=== PATIENT | female | born 1945 | race Caucasian/White ===

== ENCOUNTER 2017-05-09 19:28 | Inpatient (IN) | payer OTHER, MEDICAID, MEDICARE ==
--- NOTE | 2017-05-09 19:37 | ED Physician Chart ---
Chief Complaint/HPI - Patient Information Date Seen:: 05/09/17 Time Seen:: 19:30 Chief Complaint:: Decreased responsiveness since about 3 pm today. History of Present Illness:: Pt was seen immediately by me upon her arrival. Brought in by ambulance from nursing facility for the above reason. Pt is obtunded and responsive to tactile stimuli only. H & P are limited because pt is unable to cooperate. Info is primarily from review of limited transfer documents. Pt has h/o ESRD on hemodialysis, hepatic failure with h/o hepatic encephalopathy and is on lactulose therapy. Pt is not in respiratory distress. Allergies:: Zosyn Vitals:: see Nurse Note. Historian:: Medical Records (from transferring facility) Family MD/PCP:: Dr. Rivera LMP:: Postmenopausal Review:: Nurse's Note Reviewed, Transfer documents Reviewed Review of Systems - Review of Systems General/Constitutional: Other (Pt does not cooperate for ROS.) Past Medical History - Past Medical History Past Medical History: HTN, DM, CVA/TIA, Dyslipidemia, PUD/GERD, ESRD, Other ( hepatic cirrhosis) Family History: Other (Pt is unable to cooperate to provide info on FHx.) Social History: Care Facility, Other (Pt is unable to cooperate to provide info on SHx.) Surgical History: other (pt is unable to cooperate to provide info on Surgical Hx.) Psychiatricy History: Depression Medication: Reviewed Family Medical History - Family Member Mother History Unknown: Yes Physical Exam - Physical Examination General/Constitutional: Alert Other Gen/Cons comments:: Alert and slightly cachetic elderly female with good respiratory effort. Pt responds to tactile stimuli only. Head: Atraumatic Other Eyes comments:: Pupils are slightly constricted. Eye exam is limited because pt is unable to cooperate. Skin: No rash, No ecchymosis, No lymphadenopathy ENMT: External ears, nose nl, TM canals nl, Nasal exam nl, Oropharynx nl Neck: Nontender, Full ROM w/o pain, No JVD, No nuchal rigidity, No mass, No stridor Respiratory: Nl effort/Exclusion, Clear to Auscultation, No Wheeze/Rhonchi/Rales Cardio Vascular: RRR, No murmur, gallop, rubs GI: No tenderness/rebounding/guarding, No organomegaly, Normal BS's, Nondistended, No mass/bruits Other GI comments:: Abdomen is soft. Extremities: No edema Other Neuro/Psych comments:: Pt responds to tactile stimuli. Spontaneous movements noticed in all 4 extremities. Pt does not cooperate for full neurological exam. Labs/Radiology/EKG Results - Lab Results Results: Laboratory Tests 05/09/17 05/09/17 05/09/17 19:41 19:45 19:45 WBC 6.3 RBC 4.63 Hgb 14.1 Hct 43.4 MCV 93.8 MCH 30.5 MCHC Differential 32.5 RDW 16.0 Plt Count 104 L MPV 9.5 Neutrophils % 77.7 Lymphocytes % 15.2 L Monocytes % 6.4 Eosinophils % 0.6 Basophils % 0.1 PT 11.9 H INR 1.13 PTT (Actin FS) 29.2 Sodium Potassium Chloride Carbon Dioxide Anion Gap BUN Creatinine Est GFR ( Amer) Est GFR (Non-Af Amer) BUN/Creatinine Ratio Glucose POC Glucose 123 H Whole Bld Lactic Acid Calcium Total Bilirubin AST ALT Alkaline Phosphatase Ammonia Creatine Kinase Troponin I Total Protein Albumin Globulin Albumin/Globulin Ratio Urine Source Urine Color Urine Clarity Urine pH Ur Specific [place] Urine Protein Urine Glucose (UA) Urine Ketones Urine Blood Urine Nitrate Urine Bilirubin Urine Urobilinogen Ur Leukocyte Esterase Urine RBC Urine WBC Ur Epithelial Cells Urine Bacteria 05/09/17 05/09/17 05/09/17 19:45 19:45 19:45 WBC RBC Hgb Hct MCV MCH MCHC Differential RDW Plt Count MPV Neutrophils % Lymphocytes % Monocytes % Eosinophils % Basophils % PT INR PTT (Actin FS) Sodium 135 L Potassium 3.7 Chloride 98 Carbon Dioxide 18.9 L Anion Gap 21.8 H BUN 72 H Creatinine 7.2 H* Est GFR ( Amer) TNP Est GFR (Non-Af Amer) TNP BUN/Creatinine Ratio 10.0 Glucose 136 H POC Glucose Whole Bld Lactic Acid 3.02 H* Calcium 10.4 H Total Bilirubin 2.6 H AST 33 ALT 19 Alkaline Phosphatase 119 H Ammonia Creatine Kinase 99 Troponin I 0.08 H* Total Protein 7.6 Albumin 3.9 Globulin 3.7 Albumin/Globulin Ratio 1.1 Urine Source Urine Color Urine Clarity Urine pH Ur Specific [place] Urine Protein Urine Glucose (UA) Urine Ketones Urine Blood Urine Nitrate Urine Bilirubin Urine Urobilinogen Ur Leukocyte Esterase Urine RBC Urine WBC Ur Epithelial Cells Urine Bacteria 05/09/17 05/09/17 19:45 20:10 WBC RBC Hgb Hct MCV MCH MCHC Differential RDW Plt Count MPV Neutrophils % Lymphocytes % Monocytes % Eosinophils % Basophils % PT INR PTT (Actin FS) Sodium Potassium Chloride Carbon Dioxide Anion Gap BUN Creatinine Est GFR ( Amer) Est GFR (Non-Af Amer) BUN/Creatinine Ratio Glucose POC Glucose Whole Bld Lactic Acid Calcium Total Bilirubin AST ALT Alkaline Phosphatase Ammonia 277 H Creatine Kinase Troponin I Total Protein Albumin Globulin Albumin/Globulin Ratio Urine Source [place] Urine Color YELLOW Urine Clarity CLOUDY H Urine pH 6.5 Ur Specific [place] 1.020 Urine Protein 100 H Urine Glucose (UA) NEGATIVE Urine Ketones NEGATIVE Urine Blood MODERATE H Urine Nitrate NEGATIVE Urine Bilirubin NEGATIVE Urine Urobilinogen 0.2 Ur Leukocyte Esterase MODERATE H Urine RBC 25-50 H Urine WBC 50-100 H Ur Epithelial Cells MODERATE Urine Bacteria MODERATE Laboratory Last Values WBC 6.3 Th/cmm (4.8-10.8) 05/09/17 19:45 RBC 4.63 Mil/cmm (3.80-5.20) 05/09/17 19:45 Hgb 14.1 gm/dL (11.7-16.1) 05/09/17 19:45 Hct 43.4 % (35.0-45.0) 05/09/17 19:45 MCV 93.8 fl (81-100) 05/09/17 19:45 MCH 30.5 pg (27.0-31.0) 05/09/17 19:45 MCHC Differential 32.5 pg (28.0-36.0) 05/09/17 19:45 RDW 16.0 % (11.5-20.0) 05/09/17 19:45 Plt Count 104 Th/cmm (150-400) L 05/09/17 19:45 MPV 9.5 fl 05/09/17 19:45 Neutrophils % 77.7 % (40.0-80.0) 05/09/17 19:45 Lymphocytes % 15.2 % (20.0-50.0) L 05/09/17 19:45 Monocytes % 6.4 % (2.0-10.0) 05/09/17 19:45 Eosinophils % 0.6 % (0.0-5.0) 05/09/17 19:45 Basophils % 0.1 % (0.0-2.0) 05/09/17 19:45 PT 11.9 SECONDS (9.5-11.5) H 05/09/17 19:45 INR 1.13 (0.5-1.4) 05/09/17 19:45 PTT (Actin FS) 29.2 SECONDS (26.0-38.0) 05/09/17 19:45 Sodium 135 mEq/L (136-145) L 05/09/17 19:45 Potassium 3.7 mEq/L (3.5-5.1) 05/09/17 19:45 Chloride 98 mEq/L (98-107) 05/09/17 19:45 Carbon Dioxide 18.9 mEq/L (21.0-31.0) L 05/09/17 19:45 Anion Gap 21.8 (7.0-16.0) H 05/09/17 19:45 BUN 72 mg/dL (7-25) H 05/09/17 19:45 Creatinine 7.2 mg/dL (0.6-1.2) H* 05/09/17 19:45 Est GFR ( Amer) TNP 05/09/17 19:45 Est GFR (Non-Af Amer) TNP 05/09/17 19:45 BUN/Creatinine Ratio 10.0 05/09/17 19:45 Glucose 136 mg/dL (70-105) H 05/09/17 19:45 POC Glucose 123 MG/DL (70 - 105) H 05/09/17 19:41 Whole Bld Lactic Acid 3.12 mmol/L (0.60-1.99) H* 05/09/17 21:39 Calcium 10.4 mg/dL (8.6-10.3) H 05/09/17 19:45 Total Bilirubin 2.6 mg/dL (0.3-1.0) H 05/09/17 19:45 AST 33 U/L (13-39) 05/09/17 19:45 ALT 19 U/L (7-52) 05/09/17 19:45 Alkaline Phosphatase 119 U/L (34-104) H 05/09/17 19:45 Ammonia 277 umol/L (16-53) H 05/09/17 19:45 Creatine Kinase 99 U/L (30-223) 05/09/17 19:45 Troponin I 0.08 ng/mL (0.01-0.05) H* 05/09/17 22:11 Total Protein 7.6 gm/dL (6.0-8.3) 05/09/17 19:45 Albumin 3.9 gm/dL (3.7-5.3) 05/09/17 19:45 Globulin 3.7 gm/dL 05/09/17 19:45 Albumin/Globulin Ratio 1.1 (1.0-1.8) 05/09/17 19:45 Urine Source [place] 05/09/17 20:10 Urine Color YELLOW 05/09/17 20:10 Urine Clarity CLOUDY (CLEAR) H 05/09/17 20:10 Urine pH 6.5 (4.6 - 8.0) 05/09/17 20:10 Ur Specific [place] 1.020 (1.005-1.030) 05/09/17 20:10 Urine Protein 100 mg/dL (NEGATIVE) H 05/09/17 20:10 Urine Glucose (UA) NEGATIVE mg/dL (NEGATIVE) 05/09/17 20:10 Urine Ketones NEGATIVE mg/dL (NEGATIVE) 05/09/17 20:10 Urine Blood MODERATE (NEGATIVE) H 05/09/17 20:10 Urine Nitrate NEGATIVE (NEGATIVE) 05/09/17 20:10 Urine Bilirubin NEGATIVE (NEGATIVE) 05/09/17 20:10 Urine Urobilinogen 0.2 E.U./dL (0.2 - 1.0) 05/09/17 20:10 Ur Leukocyte Esterase MODERATE (NEGATIVE) H 05/09/17 20:10 Urine RBC 25-50 /hpf (0-5) H 05/09/17 20:10 Urine WBC 50-100 /hpf (0-5) H 05/09/17 20:10 Ur Epithelial Cells MODERATE /lpf (FEW) 05/09/17 20:10 Urine Bacteria MODERATE /hpf (NONE SEEN) 05/09/17 20:10 - Radiology Results Results: PCXR: Based on my interpretation, cardiomegaly with increased markings at right lower lung field. Consider early RLL pneumonia. Official report is pending. Head CT without contrast: Motion artifacts. Atrophy. Lacunar infarcts. No bleed. No shift. No edema. Official report per Dr. Inocencio Pereira, radiologist. - EKG Interpretations EKG Time:: 20:00 Rate & Rhythm: NSR with VR 93 Comments:: LPFB. Cannot r/o old ASMI, age undetermined. No acute ischemic changes. manager clinic: NSR with VR 86. No ectopy. ED Septic Shock - . Is Septic Shock (SBP<90, OR Lactate>4 mmol\L) present?: No Reassessment (Disposition) - Reassessment Reassessment:: 1999 Pt has been repeatedly evaluated. Pt's mental status did not change much after Narcan 0.4 mg IVP x 2 had been given. Her Accuchek was 123 on presentation. Pt maintains good respiratory effort with adequate O2 saturation 96%. 2203 Pt has remained stable. She has been reexamined repeatedly. No new findings. CT and remaining lab results just became available. Patient's daughter Lianne was at bedside. EKG, lab and radiological findings have been reviewed. Management plan has been discussed. She stated that pt had specific instructions to her before that no NG tube is to be inserted. Lactulose thus is to be given rectally. Case was discussed with Dr. Johnson at [facility] with H & P, EKG, CT, CXR, and available lab findings reviewed. He concurred with present management. Dr. Johnson requested repeat lactic acid level and troponin I. He is to be contacted with results and then decision will be made to have pt transferred to [facility] for further care. Dr. Johnson gave authorization number for pt's care here at this hospital. ([id number]). Dr. Johnson was aware that pt's daughter Lianne prefers to have pt transferred to [facility] for further care. 0013 Pt remains stable. Repeat lactic acid level and troponin I were reviewed with Dr. Johnson earlier. Dr. Johnson just called back and related that [facility] is unable to accept pt for transfer at this time. Dr. Johnson authorized pt to be admitted here at this hospital overnight. He will attempt to have [facility] arrange transfer for tomorrow. Dr. Manzo is to be contacted. 0023 Case was discussed with Dr. Manzo with pertinent H & P, EKG, radiogical and lab findings, etc. reviewed. Pt is to be admitted to ICU under his care. - Diagnosis Diagnosis:: Hepatic cirrhosis with hepatic encephalopathy. Urinary tract infection. Probable early RLL pneumonia. ESRD, on hemodialysis. Mildly elevated troponin I of unknown significance. Diabetes mellitus, stable. - Patient Disposition Admitted to:: ICU Admitting Medical Physician:: Jose Manzo Time:: 00:25 Condition at Disposition:: Stable, Critical
[2017-05-09] MEDS ORDERED: Naloxone 0.4 mg/mL 1mL Vial IVP STA ×2 (19:40→19:55)
[2017-05-09] MEDS ORDERED: Naloxone 0.4 mg/mL 1mL Vial ONE ×2 (19:43→19:58)
[2017-05-09 20:08] LABS: % BASOPHILS 0.1 % (0.0-2.0); % EOSINOPHILS 0.6 % (0.0-5.0); % LYMPHOCYTES 15.2 % (20.0-50.0); % MONOCYTES 6.4 % (2.0-10.0); % NEUTROPHILS 77.7 % (40.0-80.0); HEMATOCRIT 43.4 % (35.0-45.0); HEMOGLOBIN 14.1 gm/dL (11.7-16.1); MEAN CELL VOLUME 93.8 fl (81-100); MEAN CORPUSCULAR HEMOGLOBIN 30.5 pg (27.0-31.0); MEAN CORPUSCULAR HGB CONC 32.5 pg (28.0-36.0); MEAN PLATELET VOLUME 9.5 fl; NEUTROPHILE ABSOLUTE 4.9 Th/cmm (1.8-8.0); PLATELET COUNT 104 Th/cmm (150-400); RED BLOOD COUNT 4.63 Mil/cmm (3.80-5.20); WHITE BLOOD COUNT 6.3 Th/cmm (4.8-10.8)
[2017-05-09 20:20] LABS: INR 1.13 (0.5-1.4); PROTHROMBIN TIME (TEST) 11.9 SECONDS (9.5-11.5)
[2017-05-09 20:22] LABS: URINE BILIRUBIN NEGATIVE (NEGATIVE); URINE BLOOD MODERATE (NEGATIVE); URINE GLUCOSE (UA) NEGATIVE (NEGATIVE); URINE KETONE NEGATIVE (NEGATIVE); URINE PH 6.5 (4.6 - 8.0); URINE PROTEIN 100 mg/dL (NEGATIVE); URINE UROBILINOGEN 0.2 E.U./dL (0.2 - 1.0)
[2017-05-09 20:23] LABS: URINE COLOR YELLOW
[2017-05-09 20:24] LABS: ALB/GLOB RATIO 1.1 (1.0-1.8); ALKALINE PHOSPHATASE 119 U/L (34-104); ANION GAP 21.8 (7.0-16.0); BILIRUBIN,TOTAL 2.6 mg/dL (0.3-1.0); BUN - UREA NITROGEN 72 mg/dL (7-25); CALCIUM SERUM 10.4 mg/dL (8.6-10.3); CARBON DIOXIDE 18.9 mEq/L (21.0-31.0); CHLORIDE 98 mEq/L (98-107); GLUCOSE 136 mg/dL (70-105); POTASSIUM SERUM 3.7 mEq/L (3.5-5.1); SGOT 33 U/L (13-39); SGPT/ALT 19 U/L (7-52); SODIUM SERUM 135 mEq/L (136-145)
[2017-05-09 20:45] LABS: URINE BACTERIA MODERATE /hpf (NONE SEEN); URINE EPITHELIAL CELLS MODERATE /lpf (FEW); URINE RBC 25-50 /hpf (0-5)
[2017-05-09 20:49] LABS: CREATININE - SERUM 7.2 mg/dL (0.6-1.2)
[2017-05-09 20:52] LABS: URINE WBC 50-100 /hpf (0-5)
[2017-05-09] MEDS ORDERED: Levofloxacin 500mg/100mL 500 MG in Premix Fluid 1 BAG IV ONE (20:52)
[2017-05-09] MEDS ORDERED: Levofloxacin 500mg/100mL 500 MG/100 ML BAG IV ONE (20:54)
[2017-05-09] MEDS ORDERED: Lactulose 10 Gm/15 mL 30mL UDC NG STA (21:00)
[2017-05-09] MEDS ORDERED: Sodium Chloride 0.9% 1,000 ML IV ONE (21:45)
[2017-05-09] MEDS ORDERED: Lactulose 10 Gm/15 mL 30mL UDC ONE (22:02)
[2017-05-10] MEDS: Sodium Chloride 0.9% 1,000 ML IV SCH ×2 (02:36→13:53)
[2017-05-10 05:11] LABS: MEAN PLATELET VOLUME 9.8 fl; NEUTROPHILE ABSOLUTE 5.4 Th/cmm (1.8-8.0); RED CELL DISTRIBUTION WIDTH 16.6 % (11.5-20.0)
[2017-05-10 05:19] LABS: % BASOPHILS 1.5 % (0.0-2.0); % EOSINOPHILS 1.2 % (0.0-5.0); % LYMPHOCYTES 12.1 % (20.0-50.0); % MONOCYTES 8.3 % (2.0-10.0); % NEUTROPHILS 76.9 % (40.0-80.0); HEMATOCRIT 39.4 % (35.0-45.0); HEMOGLOBIN 13.1 gm/dL (11.7-16.1); MEAN CELL VOLUME 93.3 fl (81-100); MEAN CORPUSCULAR HGB CONC 33.2 pg (28.0-36.0); PLATELET COUNT 83 Th/cmm (150-400); RED BLOOD COUNT 4.22 Mil/cmm (3.80-5.20)
[2017-05-10 05:26] LABS: ALB/GLOB RATIO 1.1 (1.0-1.8); ALKALINE PHOSPHATASE 97 U/L (34-104); ANION GAP 21.1 (7.0-16.0); BILIRUBIN,TOTAL 2.6 mg/dL (0.3-1.0); BUN - UREA NITROGEN 76 mg/dL (7-25); BUN/CREATININE RATIO 10.3; CALCIUM SERUM 9.9 mg/dL (8.6-10.3); CARBON DIOXIDE 19.8 mEq/L (21.0-31.0); CHLORIDE 104 mEq/L (98-107); GLUCOSE 106 mg/dL (70-105); POTASSIUM SERUM 3.9 mEq/L (3.5-5.1); SGOT 33 U/L (13-39); SGPT/ALT 18 U/L (7-52); SODIUM SERUM 141 mEq/L (136-145)
[2017-05-10 05:34] LABS: CREATININE - SERUM 7.4 mg/dL (0.6-1.2)
--- NOTE | 2017-05-10 08:12 | Diagnostic Imaging Report ---
CT scan of the brain without intravenous contrast HISTORY: Stroke, CVA Total DLP equals 631 CTDI equals 35.9 Axial sections were obtained from the base of the skull to the vertex. The exam is limited due to patient motion artifact. There is prominence the ventricular system size along with enlargement of cerebral sulci and subarachnoid cisterns reflecting atrophy. Hypodensity is noted throughout the supratentorial white matter regions without mass effect. The findings may be associated with chronic small vessel ischemic disease. Somewhat more discrete hypodensity noted in the left basal ganglia region that may be associated with old infarcts. No acute intracerebral hemorrhage. Again, no mass effect or shift of midline structures. No extra-axial masses or abnormal fluid collections. IMPRESSION: 1. Limited exam due to patient motion 2. Cerebral atrophy 3. Supratentorial white matter changes that may be associated with chronic small vessel ischemic disease. Somewhat more focal hypodensity in the left basal ganglia region may be associated with old infarcts. 4. No definite acute abnormalities
--- NOTE | 2017-05-10 08:13 | Diagnostic Imaging Report ---
Portable chest x-ray HISTORY: Shortness of breath The heart is enlarged. No focal pulmonary processes. No hilar or mediastinal abnormalities. Surgical changes seen within the cervical spine. IMPRESSION: 1. Cardiomegaly 2. No acute focal pulmonary processes
--- NOTE | 2017-05-10 08:13 | History and Physical ---
History of Present Illness - HPI Chief Complaint: Altered Level of Consciousness HPI: 71 year old female who was brought in by ambulance to [facility] ER from [facility] for decreased responsiveness noted by the staff. Patient was found to be obtunded and only responsive to tactile stimuli. Patient is unable to provide any history and her medical information obtained from her transfer records. Patient has a history of ESRD on HD, in addition she has a history of liver failure with history of hepatic encephalopathy. She has a history of HTN, DM,CVA/TIA,Dyslipidemia, PUD/GERD, ESRD on HD, Hepatic Cirrhosis and Depression. Vital Signs: Last Vital Signs Temp 97.1 F 05/10/17 04:00 Pulse 75 05/10/17 06:52 Resp 16 05/10/17 06:52 BP 115/65 05/10/17 06:52 Pulse Ox 97 05/10/17 06:52 Past Medical History Cardiovascular: Report: HTN, Hyperlipidemia Pulmonary: Report: No Pertinent Hx [employer]: Report: CVA, TIA GI: Report: Peptic Ulcer, Other (liver failure, hepatic encephalopathy) Psych: Report: Depression Musculoskeletal: Report: No Pertinent Hx Rheumatologic: Report: No pertinent Hx Infectious Disease: Report: No Pertinent Hx Renal/: Report: Chronic Renal Failure (ESRD) Endocrine: Report: Diabetes Dermatology: Report: No Pertinent Hx - Past Surgical History Past Surgical History: No pertinent Hx Family Medical History - Family Member Mother History Unknown: Yes Social History Smoke: No Alcohol: None Drugs: None Lives: Longterm - Medications Home Medications: Home Medication Medication Instructions Recorded Type Acetaminophen [Tylenol] 650 mg PO Q4HR PRN 05/09/17 History Albuterol Sulfate 5 mg IH Q4H PRN 05/09/17 History Aspirin [Aspirin Chewable] 81 mg PO DAILY 05/09/17 History Calcium Carbonate/Vitamin D3 1 each PO BID 05/09/17 History [Calcium 500 + D Tablet] Carvedilol 6.25 mg PO BID 05/09/17 History Furosemide 40 mg PO DAILY 05/09/17 History Hydrocortisone 1% Cream 1 appl TP PRN PRN 05/09/17 History [Hydrocortisone 1%] Lactulose 36 gm PO BID 05/09/17 History Lactulose 36 gm PO TID 05/09/17 History Rifaximin [Xifaxan] 550 mg PO BID 05/09/17 History Sevelamer Carbonate [Renvela] 1.6 gm PO BID 05/09/17 History Vit B Cmplx 3/FA/Vit C/Biotin 1 mg PO DAILY 05/09/17 History [Nephro-Shane Rx Tablet] hydrOXYzine [Atarax*] 10 mg PO Q24H PRN 05/09/17 History - Allergies Allergies/Adverse Reactions: Allergies Allergy/AdvReac Type Severity Reaction Status Date / Time piperacillin [From Zosyn] Allergy Verified 05/09/17 20:08 tazobactam [From Zosyn] Allergy Verified 05/09/17 20:08 Review of Systems - Review of Systems Constitutional: Report: No Significant Eyes: Report: No Significant ENT: Report: No Significant Respiratory: Report: No Significant Cardiovascular: Report: No Significant Gastrointestinal: Report: No Significant Genitourinary: Report: No Significant Musculoskeletal: Report: No Significant Skin: Report: No Significant Neurological: Report: No Significant Physical Exam - Physical Exam HEENT: Report: Ears Nose Throat within normal limits, Pharnyx within normal limits Neck: Report: Within normal limits Cardiovascular Systems: Report: +s1/s2 noted, Regular, Rate and Rhythm Respiratory: Report: Breath Sounds are within normal limits Abdomen: Report: Non-tender to palpation - Lab Results All Lab Results last 24 hours: Laboratory Last Values WBC 7.0 Th/cmm (4.8-10.8) 05/10/17 04:50 RBC 4.22 Mil/cmm (3.80-5.20) 05/10/17 04:50 Hgb 13.1 gm/dL (11.7-16.1) 05/10/17 04:50 Hct 39.4 % (35.0-45.0) 05/10/17 04:50 MCV 93.3 fl (81-100) 05/10/17 04:50 MCH 31.0 pg (27.0-31.0) 05/10/17 04:50 MCHC Differential 33.2 pg (28.0-36.0) 05/10/17 04:50 RDW 16.6 % (11.5-20.0) 05/10/17 04:50 Plt Count 83 Th/cmm (150-400) L D 05/10/17 04:50 MPV 9.8 fl 05/10/17 04:50 Neutrophils % 76.9 % (40.0-80.0) 05/10/17 04:50 Lymphocytes % 12.1 % (20.0-50.0) L 05/10/17 04:50 Monocytes % 8.3 % (2.0-10.0) 05/10/17 04:50 Eosinophils % 1.2 % (0.0-5.0) 05/10/17 04:50 Basophils % 1.5 % (0.0-2.0) 05/10/17 04:50 PT 11.9 SECONDS (9.5-11.5) H 05/09/17 19:45 INR 1.13 (0.5-1.4) 05/09/17 19:45 PTT (Actin FS) 29.2 SECONDS (26.0-38.0) 05/09/17 19:45 Sodium 141 mEq/L (136-145) 05/10/17 04:50 Potassium 3.9 mEq/L (3.5-5.1) 05/10/17 04:50 Chloride 104 mEq/L (98-107) 05/10/17 04:50 Carbon Dioxide 19.8 mEq/L (21.0-31.0) L 05/10/17 04:50 Anion Gap 21.1 (7.0-16.0) H 05/10/17 04:50 BUN 76 mg/dL (7-25) H 05/10/17 04:50 Creatinine 7.4 mg/dL (0.6-1.2) H* 05/10/17 04:50 Est GFR ( Amer) TNP 05/10/17 04:50 Est GFR (Non-Af Amer) TNP 05/10/17 04:50 BUN/Creatinine Ratio 10.3 05/10/17 04:50 Glucose 106 mg/dL (70-105) H 05/10/17 04:50 POC Glucose 123 MG/DL (70 - 105) H 05/09/17 19:41 Whole Bld Lactic Acid 3.12 mmol/L (0.60-1.99) H* 05/09/17 21:39 Calcium 9.9 mg/dL (8.6-10.3) 05/10/17 04:50 Total Bilirubin 2.6 mg/dL (0.3-1.0) H 05/10/17 04:50 AST 33 U/L (13-39) 05/10/17 04:50 ALT 18 U/L (7-52) 05/10/17 04:50 Alkaline Phosphatase 97 U/L (34-104) 05/10/17 04:50 Ammonia 176 umol/L (16-53) H 05/10/17 04:50 Creatine Kinase 99 U/L (30-223) 05/09/17 19:45 Troponin I 0.10 ng/mL (0.01-0.05) H* D 05/10/17 04:50 Total Protein 6.8 gm/dL (6.0-8.3) 05/10/17 04:50 Albumin 3.5 gm/dL (3.7-5.3) L 05/10/17 04:50 Globulin 3.3 gm/dL 05/10/17 04:50 Albumin/Globulin Ratio 1.1 (1.0-1.8) 05/10/17 04:50 Urine Source [place] 05/09/17 20:10 Urine Color YELLOW 05/09/17 20:10 Urine Clarity CLOUDY (CLEAR) H 05/09/17 20:10 Urine pH 6.5 (4.6 - 8.0) 05/09/17 20:10 Ur Specific [place] 1.020 (1.005-1.030) 05/09/17 20:10 Urine Protein 100 mg/dL (NEGATIVE) H 05/09/17 20:10 Urine Glucose (UA) NEGATIVE mg/dL (NEGATIVE) 05/09/17 20:10 Urine Ketones NEGATIVE mg/dL (NEGATIVE) 05/09/17 20:10 Urine Blood MODERATE (NEGATIVE) H 05/09/17 20:10 Urine Nitrate NEGATIVE (NEGATIVE) 05/09/17 20:10 Urine Bilirubin NEGATIVE (NEGATIVE) 05/09/17 20:10 Urine Urobilinogen 0.2 E.U./dL (0.2 - 1.0) 05/09/17 20:10 Ur Leukocyte Esterase MODERATE (NEGATIVE) H 05/09/17 20:10 Urine RBC 25-50 /hpf (0-5) H 05/09/17 20:10 Urine WBC 50-100 /hpf (0-5) H 05/09/17 20:10 Ur Epithelial Cells MODERATE /lpf (FEW) 05/09/17 20:10 Urine Bacteria MODERATE /hpf (NONE SEEN) 05/09/17 20:10 Laboratory Results - last 24 hr 05/10/17 05/10/17 05/10/17 04:50 04:50 04:50 WBC 7.0 RBC 4.22 Hgb 13.1 Hct 39.4 MCV 93.3 MCH 31.0 MCHC Differential 33.2 RDW 16.6 Plt Count 83 L D MPV 9.8 Neutrophils % 76.9 Lymphocytes % 12.1 L Monocytes % 8.3 Eosinophils % 1.2 Basophils % 1.5 Sodium 141 Potassium 3.9 Chloride 104 Carbon Dioxide 19.8 L Anion Gap 21.1 H BUN 76 H Creatinine 7.4 H* Est GFR ( Amer) TNP Est GFR (Non-Af Amer) TNP BUN/Creatinine Ratio 10.3 Glucose 106 H Calcium 9.9 Total Bilirubin 2.6 H AST 33 ALT 18 Alkaline Phosphatase 97 Ammonia 176 H Troponin I Total Protein 6.8 Albumin 3.5 L Globulin 3.3 Albumin/Globulin Ratio 1.1 05/10/17 04:50 WBC RBC Hgb Hct MCV MCH MCHC Differential RDW Plt Count MPV Neutrophils % Lymphocytes % Monocytes % Eosinophils % Basophils % Sodium Potassium Chloride Carbon Dioxide Anion Gap BUN Creatinine Est GFR ( Amer) Est GFR (Non-Af Amer) BUN/Creatinine Ratio Glucose Calcium Total Bilirubin AST ALT Alkaline Phosphatase Ammonia Troponin I 0.10 H* D Total Protein Albumin Globulin Albumin/Globulin Ratio - Assessment Assessment: altered level of consciousness hepatic failure hepatic encephalopathy ESRD on HD elevated troponin levels RLL PNA HTN DM CVA/TIA Dyslipidemia PUD/GERD Depression - Plan Plan: altered level of consciousness ... repeat Ammonia level. Will repeat labwork this morning. hepatic failure ... hepatic encephalopathy ESRD on HD ... nephrology consult. Will order dialysis. elevated troponin levels ... on telemetry, repeat troponin levels. RLL PNA ... will order pulmonology. Patient started on IV Vancomycin per pharmacy. repeat chest xray HTN ... will order home medication. DM ... accuchecks QID, SSI CVA/TIA Dyslipidemia PUD/GERD Depression
[2017-05-10] MEDS ORDERED: Albuterol Nebulizer 2.5mg/3mL HHN PRN (08:33)
[2017-05-10] MEDS: SEVELAMER CARBONATE 1.6 GM PO SCH ×2 (08:58→17:20)
[2017-05-10] MEDS ORDERED: Aspirin 81mg Chewable Tab PO SCH (09:00)
[2017-05-10] MEDS ORDERED: Lactulose 10 Gm/15 mL 30mL UDC PO SCH ×2 (09:00→11:13)
[2017-05-10] MEDS ORDERED: BIOTIN PO SCH (09:00)
[2017-05-10] MEDS ORDERED: [UNRECOGNIZED DRUG - OTHER] PO SCH (09:00)
[2017-05-10] MEDS ORDERED: VIT B CMPLX PO SCH (09:00)
[2017-05-10] MEDS ORDERED: VITAMIN D3 PO SCH (09:00)
[2017-05-10] MEDS ORDERED: Non-Formulary Item 1 EA (Rifaximin [Xifaxan] 550 MG) PO SCH (09:00)
[2017-05-10] MEDS ORDERED: CALCIUM CARBONATE PO SCH (09:00)
[2017-05-10] MEDS ORDERED: Calcium Carb/Vit D 500 mg/200 U Tab PO SCH (11:17)
--- NOTE | 2017-05-10 11:50 | Diagnostic Imaging Report ---
Portable chest x-ray HISTORY: Cough The heart is enlarged. No acute focal pulmonary processes are seen. No hilar or mediastinal abnormalities. IMPRESSION: 1 no acute abnormalities 2. Cardiomegaly
[2017-05-10] MEDS: Albuterol/Ipratropium Neb 3 ML AERS HHN SCH ×2 (15:38→18:54)
--- NOTE | 2017-05-10 17:50 | Consultation ---
DATE OF CONSULTATION: 05/10/2017 MANAGING PARTNER: Christopher Tomlin M.D. REASON FOR CONSULTATION: Electrolyte imbalance and fluid management. HISTORY OF PRESENT ILLNESS: This is a 71-year-old female with past medical history of end-stage renal disease, on hemodialysis, was admitted because of altered level of consciousness. A few hours prior to admission, the patient was noted by ECF staff to be poorly responsive. She had been refusing her lactulose for several days. She was then brought to the Emergency Room. CT scan of the head revealed no acute disease, cerebral atrophy and possible old infarction noted in the left basal ganglia. Chest x-ray was negative. White count was 6.3 and she has had a temperature of 96.8. However, ammonia level was 277. She was supposed to be transferred to [place], but this was canceled. She has her dialysis on Wednesday, and Saturdays. She missed her Wednesday treatment. Her BUN/creatinine today were 72/7.2. PAST MEDICAL HISTORY: 1. End-stage renal disease, on hemodialysis. 2. Chronic liver disease. 3. Hepatic encephalopathy. 4. Essential hypertension. 5. CVA/TIA. 6. Dyslipidemia. 7. Peptic ulcer disease/GERD. 8. Depression. PAST SURGICAL HISTORY: Status post creation of left AV fistula. CURRENT MEDICATIONS: She is currently on albuterol, budesonide, calcium carbonate, carvedilol, enalapril, hydroxyzine, lactulose, levofloxacin, naloxone, normal saline, rifaximin, vancomycin. ALLERGIES: ZOSYN and TAZOBACTAM. SOCIAL AND FAMILY HISTORY: I was not able to obtain directly from the patient because she is obtunded at the present time. REVIEW OF SYSTEMS: Again, I was unable to decipher directly from the patient. PHYSICAL EXAMINATION: GENERAL: As mentioned, the patient is quite of time, but not in any form of distress. VITAL SIGNS: Her blood pressure is 156/75, pulse 85, temperature 96.8 degrees. SKIN: Good turgor, warm, no rash, no jaundice appreciated. HEENT: Head normocephalic, atraumatic. Eyes: Unable to assess her extraocular muscles or pupils. She has ____ sclerae. Nose, midline nasal septum. Mouth: Dry mucosa with poor dentition. NECK: Supple, no adenopathy, no thyromegaly, no bruits. Trachea palpated in the midline. CHEST AND CARDIOVASCULAR: S1, S2. No rub, murmur or gallop appreciated. Point of maximal impulse fifth intercostal space, left midclavicular line. No abdominal or femoral bruits appreciated. LUNGS: Equal expansion. No use of accessory muscles. No supraclavicular retractions, decreased breath sounds, clear to auscultation without any wheeze. BREASTS: Symmetrical, without any discharge. ABDOMEN: Mildly globular, soft. Positive for bowel sounds. No bruits either diastolic or systolic. RECTAL: Lax sphincter tone. GENITOURINARY: Normal appearing female genitalia. MUSCULOSKELETAL: No effusions present in her joints, but unable to assess her range of motion. EXTREMITIES: No evidence of edema, cyanosis nor clubbing with palpable femoral, but unable to fully appreciate popliteal and dorsalis pedis pulses. NEUROLOGIC: As mentioned, the patient is obtunded, so I was not able to pursue further my neuro exam. LABORATORY DATA: Did reveal white count 7, hemoglobin 13.1, hematocrit 39.4, platelets 83, polys 76.9%. Sodium 141, potassium 3.9, chloride 104, bicarbonate 19, BUN 76, creatinine of 7.4, glucose 106, ammonia 176, troponin 0.10, albumin 3.5. IMPRESSION: 1. End-stage renal disease, on hemodialysis. 2. Elevated troponin secondary to kidney failure. 3. Chronic liver disease. 4. Hepatitis encephalopathy, stage IV. 5. Essential hypertension. 6. History of cerebrovascular accident/transient ischemic attack. 7. Dyslipidemia. 8. Peptic ulcer disease/gastroesophageal reflux disease. 9. Depression. PLAN: 1. Hemodialysis today. 2. We will schedule again for dialysis at a.m. 3. Follow up electrolytes. 4. Continue lactulose. 5. Follow up urine cultures. Thank you Dr. Manzo for this consult. I will follow the patient closely with you. JOB# [id number]
[2017-05-10] MEDS ORDERED: Budesonide 0.5 Mg/2 mL Ud HHN SCH (19:00)
--- NOTE | 2017-05-10 19:53 | Consultation ---
DATE OF CONSULTATION: 05/10/[address] Manzo. HISTORY AND PHYSICAL: This 71-year-old female patient, who has dementia at shelter. The patient had missed dialysis. The patient apparently has not been taking lactulose, and the patient became altered level. At this time, the patient was brought in by coconut cooker to the Emergency Room. The patient is admitted. PAST MEDICAL HISTORY: Acute respiratory failure, congestive heart failure, hypertension, hyperlipidemia, hepatic encephalopathy, and pneumonia, CVA with late effect, GERD, depression, dementia, thrombocytopenia, and vitamin D deficiency. FAMILY HISTORY: Unremarkable. SOCIAL HISTORY: No history of smoking, alcohol abuse. ALLERGIES: No known allergies. PHYSICAL EXAMINATION: VITAL SIGNS: Blood pressure 140/80, pulse 80, respirations 28. HEAD: Normocephalic. No lumps or bumps. EYES: Pupils are equal, reactive to light. Fundi show AV nicking, sclerae white, conjunctivae pink. NECK: Carotid 2+. Normal upstroke. JVD 10 cm above the sternal angle. Thyroid not palpable. Lymph nodes not palpable. CHEST: Shows increased AP diameter. No kyphosis, scoliosis. LUNGS: Bilateral rales. Decreased breath sounds both the bases. HEART: PMI at sixth intercostal space with lateral to midclavicular line. S1, S2, S3, S4, systolic murmur grade 2/6 lower left sternal border without radiation. ABDOMEN: Soft. Liver and spleen are not palpable. No organomegaly. Bowel sounds active. NEUROLOGIC: The patient is altered level. EXTREMITIES: Peripheral pulses 1+. No pedal edema. CLINICAL IMPRESSION: Acute respiratory failure, congestive heart failure, right lower lobe pneumonia, hypertension, hyperlipidemia, hepatic encephalopathy with elevated ammonia level, CVA with late effect, gastroesophageal reflux disease, depression, dementia, thrombocytopenia, vitamin D deficiency. PLAN: The patient had dialysis with ultrafiltration. We will get echocardiogram and monitor the patient for any arrhythmias. JOB# [id number]
[2017-05-10] MEDS ORDERED: Gentamicin 100mg/100mL Premix Bag IV ONE (20:00)
--- NOTE | 2017-05-11 00:32 | Progress Notes ---
DATE: 05/10/2017 PULMONARY/CRITICAL CARE CONSULTATION REASON FOR CONSULTATION: Pneumonia with altered state of mind possible. CONSULT NOTE: This is a 71-year-old female who is on dialysis for the last 10 years and is basically doing okay, practically wheelchair ridden, and goes to dialysis 3 times a day, lives by a local convalescent home. Most of the information is obtained by talking with the patient's daughter who is next to her at the time of my examination, meaningful. The patient said she was okay last , since then she became altered. Subsequently, she was brought up here for further evaluation and necessary treatment. PAST MEDICAL HISTORY: History of hypertension and history of end-stage renal disease, on hemodialysis, history of cirrhosis of liver, history of diabetic mellitus, history of TIA, dyslipoproteinemia, peptic ulcer disease as well as a chronic depression. PAST SURGICAL HISTORY: Left hip repair. SOCIAL HISTORY: The patient lives in a convalescent home. CURRENT MEDICATIONS: Albuterol sulfate handheld nebulizer, Lasix, hydrocortisone cream, lactulose, rifaximin, Renvela as well as Nephro and Atarax, reason not clear. ALLERGIES: The patient's allergy history is not available. HABITS: The patient's family denies any history of smoking. PHYSICAL EXAMINATION: GENERAL: This is an elderly looking female, barely arousable, not in any acute distress. VITAL SIGNS: The patient's recorded vitals: Temperature is 96.8, heart rate is in 70s, blood pressure 115/55 and saturation is 99%. HEENT: Examination of the head is grossly unremarkable. Pupils appear to be equal and reacting to light. Conjunctivae are slightly pallor. Oral cavity shows dry mouth, posterior pharyngeal fossa could not be visualized. Fair to poor dental hygiene. NECK: Veins could not be visualized. CHEST: Shows diminished air entry with occasional secretory noise. HEART: Regular. ABDOMEN: Soft, nontender. EXTREMITIES: Show quite stiff leg, but no swelling or tenderness. LABORATORY DATA: The patient's recorded laboratory studies: White count is 6.3, hemoglobin 14 grams. INR is 1.13. Electrolytes are okay with creatinine is 7.2 and lactic acid 3.2. There is elevated alkaline phosphatase. Ammonia is 227, which has come down to 176. Urine shows cloudy urine with moderate bacteria. The patient's chest x-ray shows borderline cardiomegaly with mild questionable interstitial disease, though the patient's chest x-ray is rotated very hard to say for sure. ASSESSMENT: 1. The patient has altered state of mind most likely secondary to the hepatic encephalopathy, a remote possibility of cerebrovascular accident not visualized in this CT of the head could be a possibility. 2. Abnormal chest x-ray, questionable. This could be mild fluid overload versus possibly pneumonia or developing pneumonia. 3. History of cirrhosis of liver, history of hypertension, transient ischemic attack, previous hip fracture as well as end-stage renal disease. PLANS AND SUGGESTIONS: We will go ahead and continue lactulose if not orally, we will go ahead and give aggressive inhalation therapy, sputum studies, recheck ammonia level. Also, we will go ahead and get a CT of the chest for better evaluation and I agree with broad-spectrum antibiotic until exact pathology of hepatic encephalopathy and/or sepsis which could be very high, possibly could be finally materialized and go from there. JOB# [id number]
--- NOTE | 2017-05-11 08:37 | Discharge Summary ---
General Discharge Summary - Discharge Summary Date of Admission: 05/09/17 Admitting Diagnosis: Altered Level of Consciousness Patient Problems: All Active Problems Altered level of consciousness (Acute) R40.4 CVA (cerebral vascular accident) (Acute) I63.9 Depression (Acute) F32.9 Diabetes mellitus (Acute) E11.9 Dyslipidemia (Acute) E78.5 Elevated troponin I level (Acute) R74.8 End stage renal failure on dialysis (Acute) N18.6, Z99.2 GERD (gastroesophageal reflux disease) (Acute) K21.9 Hepatic encephalopathy (Acute) K72.90 Hepatic failure (Acute) Hypertension (Acute) I10 PUD (peptic ulcer disease) (Acute) K27.9 Discharge Date: 05/10/17 Discharge Diagnosis: see above Laboratory Findings: Laboratory Tests 05/10/17 05/10/17 05/10/17 04:50 04:50 04:50 WBC 7.0 RBC 4.22 Hgb 13.1 Hct 39.4 MCV 93.3 MCH 31.0 MCHC Differential 33.2 RDW 16.6 Plt Count 83 L D MPV 9.8 Neutrophils % 76.9 Lymphocytes % 12.1 L Monocytes % 8.3 Eosinophils % 1.2 Basophils % 1.5 Sodium 141 Potassium 3.9 Chloride 104 Carbon Dioxide 19.8 L Anion Gap 21.1 H BUN 76 H Creatinine 7.4 H* Est GFR ( Amer) TNP Est GFR (Non-Af Amer) TNP BUN/Creatinine Ratio 10.3 Glucose 106 H POC Glucose Calcium 9.9 Total Bilirubin 2.6 H AST 33 ALT 18 Alkaline Phosphatase 97 Ammonia 176 H Troponin I Total Protein 6.8 Albumin 3.5 L Globulin 3.3 Albumin/Globulin Ratio 1.1 Random Vancomycin 05/10/17 05/10/17 05/10/17 04:50 04:50 18:00 WBC RBC Hgb Hct MCV MCH MCHC Differential RDW Plt Count MPV Neutrophils % Lymphocytes % Monocytes % Eosinophils % Basophils % Sodium Potassium Chloride Carbon Dioxide Anion Gap BUN Creatinine Est GFR ( Amer) Est GFR (Non-Af Amer) BUN/Creatinine Ratio Glucose POC Glucose 95 Calcium Total Bilirubin AST ALT Alkaline Phosphatase Ammonia Troponin I 0.10 H* D Total Protein Albumin Globulin Albumin/Globulin Ratio Random Vancomycin 19.9 Hospital Course: 71 year old female who was brought in by ambulance to [facility] ER from SNF for decreased responsiveness noted by the staff. Patient was found to be obtunded and only responsive to painful stimuli. Patient is unable to provide any history and medical information obtained from the transfer records. Patient has a history of ESRD on HD, in addition she has a history of Hepatic failure, Hepatic encephalopathy, HTN, DM, CVA, TIA, Dyslipidemia, PUD/GERD, Depression. She had labwork done in the ER which revealed an elevated Ammonia level of over 200. She had a CT head which was negative for any acute disease. Her repeat CXR was negative. She was found to have an elevated troponin level however she does have ESRD with creatine of 7.4 and BUN of 76. She was subsequently admitted to ICU for further evaluation and treatment. Treatment: Patient improved during her hospital stay. Patient was given Lactulose rectally which help decrease her ammonia level to 176. She was able to show improvement. She was seen by nephrology and was given dialysis during her stay. Please see dictated nephrology report. Patient was seen and evaluated by pulmonary for RLL pneumonia. Please see dictated report. Patient was seen and evaluated by cardiology for elevated troponin levels. Please see dictated report. patient had blood cultures and urine cultures collected in ER. Results still pending. Patient was subsequently transferred to telemetry because of her improvement of her condition. Patient was transferred to a contracted facility ([facility]) for continue care and treatment. I spoke to the her hospitalist from [facility] who had accepted the patient and will continue her care and treatment. Condition at Discharge: Stable Disposition: Other Care (other hosp) Home Medications: Home Medication Medication Instructions Recorded Type Acetaminophen [Tylenol] 650 mg PO Q4HR PRN 05/09/17 History Albuterol Sulfate 5 mg IH Q4H PRN 05/09/17 History Aspirin [Aspirin Chewable] 81 mg PO DAILY 05/09/17 History Calcium Carbonate/Vitamin D3 1 each PO BID 05/09/17 History [Calcium 500 + D Tablet] Carvedilol 6.25 mg PO BID 05/09/17 History Furosemide 40 mg PO DAILY 05/09/17 History Hydrocortisone 1% Cream 1 appl TP PRN PRN 05/09/17 History [Hydrocortisone 1%] Lactulose 36 gm PO BID 05/09/17 History Lactulose 36 gm PO TID 05/09/17 History Rifaximin [Xifaxan] 550 mg PO BID 05/09/17 History Sevelamer Carbonate [Renvela] 1.6 gm PO BID 05/09/17 History Vit B Cmplx 3/FA/Vit C/Biotin 1 mg PO DAILY 05/09/17 History [Nephro-Shane Rx Tablet] hydrOXYzine [Atarax*] 10 mg PO Q24H PRN 05/09/17 History Albuterol/Ipratropium Neb [Duoneb 3 ml HHN Q4HRT 05/10/17 Rx Neb] Budesonide [Pulmicort] 0.5 mg HHN BIDRT ud 05/10/17 Rx Enalaprilat [Vasotec] 2.5 mg IVP Q6HR PRN vial 05/10/17 Rx Sodium Chloride 0.9% [NaCL 0.9%] 50 ml IV .Q20H bag 05/10/17 Rx Consults and Follow-Up: RANJANA GRAVES [Other] not on staff,PCP is [Primary Care Provider] - Instructions: Hepatic Encephalopathy, Urinary Tract Infection, [id number], Pneumonia, Adult, [id number]
--- NOTE | 2017-05-11 09:24 | Diagnostic Imaging Report ---
Exam: CT examination of chest. HISTORY: Shortness of breath Total DLP equals 279 CTDI equals 7.3 contiguous thin section of the chest were obtained from thoracic outlet to the upper abdomen without the administration of contrast material therefore the study somewhat limited. The study demonstrates normal appearance of the great vessels of the neck, adenopathy can't be excluded due to lack of contrast material. Diffusion of the lower cervical upper thoracic spine appreciated. Mediastinal structures midline the heart is not enlarged. No abnormal mediastinal adenopathy is noted. The lung parenchyma is well aerated there is evidence for mild atelectatic changes. The upper abdomen demonstrates distended gallbladder with large calculi consistent with cholelithiasis. Cirrhotic liver changes appreciated Left renal cyst appreciated Bony structures demonstrate no evidence for lytic or blastic changes. IMPRESSION: Mild basilar atelectasis Cholelithiasis, cirrhotic liver appearance. CT examination abdomen might be helpful.
--- NOTE | 2017-05-11 15:07 | Consultation ---
DATE OF CONSULTATION: 05/10/2017 PRIMARY CARE PHYSICIAN: Dr. Manzo. HISTORY OF PRESENT ILLNESS: This is a 71-year-old female who was brought to the Emergency Room with complaint of altered mental status on the day of admission. When the patient came to ER, ammonia level was ____ hepatic encephalopathy. The patient also has liver cirrhosis and she is unable to provide any meaningful history. Discussed with the family at bedside. Pertinent information obtained. PAST MEDICAL HISTORY: Liver cirrhosis, ____ encephalopathy, diabetes, hypertension, osteoarthritis, end-stage renal disease, on dialysis. FAMILY HISTORY: Negative. SOCIAL HISTORY: Nonsmoker, lives in a snf, [facility]. REVIEW OF SYSTEMS: A 14-point review of systems negative except above. PHYSICAL EXAMINATION: GENERAL: Elderly female, moaning. VITAL SIGNS: Temperature is 97.6, pulse 75, respirations 20, blood pressure ____/75. HEENT: Mild pallor, no icterus or plaque. NECK: Supple. LUNGS: Breath sounds bilateral vesicular. CARDIOVASCULAR: S1, S2. ABDOMEN: Soft, bowel sounds present. LYMPHATICS: No thyroid, no cervical lymph nodes. NEUROLOGIC: The patient not responding to any verbal commands, not making eye contacts. No seizure activity noted. LABORATORY DATA: White count 7000, hemoglobin is 13 grams, platelets 83. Blood culture negative so far. Chest x-ray and CT of chest reviewed, bilateral basilar infiltrate, cholelithiasis, cirrhotic liver. DIAGNOSES: Urinary tract infection, pneumonia, hepatic encephalopathy, liver cirrhosis. PLAN: The patient was started on broad-spectrum antibiotics, gentamicin, levofloxacin, vancomycin. Supportive care. The patient awaiting transfer to [facility]. Rest of the care as ordered in [facility]. Thank you, Dr. Manzo, for this consultation. JOB# [id number]
--- NOTE | 2017-05-11 15:07 | Consultation ---
DATE OF CONSULTATION: 05/10/2017 REFERRING PHYSICIAN: Dr. Manzo. REASON FOR CONSULTATION: Altered level of consciousness and cirrhosis. HISTORY OF PRESENT ILLNESS: The patient is a 71-year-old female with a past medical history significant for HERNANDEZ, cirrhosis, decompensated by hepatic encephalopathy, who is presenting to the Emergency Room with altered level of consciousness. As per the patient's daughter, she had refused to take lactulose from the past 2 days at her [place] [facility] facility and there is also a report that the patient had refused dialysis last Wednesday, which she normally receives 3 times a week. On the day of admission, she was seen to not be alert and oriented and was increasingly withdrawn and then eventually became obtunded. At that point, she was brought into the ER for urgent evaluation. PAST MEDICAL HISTORY: Cirrhosis, thought to be related to HERNANDEZ, depression, GERD, end-stage renal disease on dialysis, hypertension, type 2 diabetes, previous stroke, hyperlipidemia. PAST SURGICAL HISTORY: Noncontributory, although there is a history of hysterectomy in the past. FAMILY HISTORY: Noncontributory. There is no history of gastric or stomach or colon cancers. ALLERGIES: THE PATIENT IS ALLERGIC TO BOTH PIPERACILLIN AND TAZOBACTAM. SOCIAL HISTORY: She does not drink any alcohol, or use tobacco products, and lives in the [place] [facility] facility. HOME MEDICATIONS: Tylenol, albuterol, aspirin, calcium supplement, carvedilol, Lasix 40 mg daily, lactulose twice daily, rifaximin twice daily, vitamin B supplement. REVIEW OF SYSTEMS: Not able to be performed given the patient's poor mental status. PHYSICAL EXAMINATION: VITAL SIGNS: Blood pressure 156/75, pulse of 85, respiratory rate is 20, 100% on room air. GENERAL: The patient is lying in bed flat. She is not arousable, but withdraws to pain at this time, spontaneously moans. Alert and oriented x0. HEENT: No obvious scleral icterus. Pupils are equal and reactive to light. Moist mucous membranes. No sublingual icterus. NECK: No obvious JVD or thyromegaly. No lymphadenopathy. CHEST: Clear to auscultation bilaterally. CARDIOVASCULAR: S1 and S2 are present. Regular rate and rhythm. ABDOMEN: Soft, nontender. No guarding, no rebound, no fluid wave. No distention. EXTREMITIES: No obvious edema. Positive pulses. LABORATORY DATA: White count 6.3, hemoglobin 14.1, platelets 104. INR 1.13, sodium 135, BUN 72, creatinine 7.2, AST 33, ALT 19, alkaline phosphatase 119, ammonia 277 on admission, is now 176. Troponin 0.08 on admission. Albumin 3.9. IMAGING STUDIES: The patient had a head CT that showed cerebral atrophy, chronic small vessel disease. Chest x-ray was performed, showed cardiomegaly. IMPRESSION: 1. This is a 71-year-old female who has a history of cirrhosis related to nonalcohol steatohepatitis, decompensated by hepatic encephalopathy who is presenting with acute altered level of consciousness. 2. Altered mental status. 3. Cirrhosis, decompensated by hepatic encephalopathy. 4. Nonalcoholic steatohepatitis. 5. History of cerebrovascular accident. 6. End-stage renal disease, on hemodialysis. DISCUSSION: The patient's presentation of altered mental status seems to be likely due to the fact that she has refused her lactulose at her assisted care facility for the past several days. The fact that she has missed an episode of hemodialysis may also be contributing, although the laboratory value of elevated ammonia seems to support hepatic encephalopathy as the primary driving force. The patient may also have a right lower lobe pneumonia as she has been started on IV vancomycin per pharmacy, which can certainly exacerbate an episode of hepatic encephalopathy. We will need to get abdominal ultrasound in order to evaluate her biliary system as the total bilirubin on presentation is slightly elevated, although I suspect this is more likely due to chronic liver disease rather than biliary obstruction. PLAN: Continue with rectally administered lactulose as long as the patient is unable to take p.o. lactulose and refusing NG tube. This route of administration may take longer to take effect, although should be still effective. Continue rifaximin b.i.d. Continue regularly scheduled dialysis. We will followup abdominal ultrasound. The patient needs to follow up with her outpatient GI physician at [facility] to determine appropriate interval of endoscopy for variceal screening. Other care as per primary. Thank you for allowing me to participate in the care of this patient. Please call with any further questions. [facility]# [id number]
--- NOTE | 2017-05-11 21:11 | Admit Criteria Form ---
Admit Criteria Forms - Admit Criteria Diagnosis: LIVER DISEASE COMPLICATIONS Clinical Indications for Admission to Inpatient Care (Place 'X' for any and all applicable criteria): Admission is indicated for patient with ANY ONE of the following(1)(2)(3)(4): [ ]I. Inpatient admission required rather than observation care because of ANY ONE of the following: [ ]a) Hemodynamic instability that is severe or persistent [ ]b) Severe electrolyte abnormalities requiring inpatient care [ ]c) Respiratory compromise that is severe or persistent [ ]d) Coagulation abnormal that is severe or persistent [ ]e) Severe pain requiring acute inpatient management [ ]f) Renal insufficiency that is severe or worsening [ ]g) Metabolic abnormalities (e.g., vomiting, hypoglycemia, acidosis) that are severe or persistent [ ]h) Hypovolemia or hypervolemia that is severe or persistent [ ]i) Absent bowel sounds with complete ileus(2) [ ]j) Signs of intestinal obstruction or peritonitis[A] [ ]k) IV fluid to replace significant ongoing losses (>3 L/m2 per day) [ ]l) Continuous IV infusion of anticoagulation, platelet inhibitor, vasoactive, or antiarrhythmic medication [ ]m) Percutaneous or open drainage (e.g., abscess, biliary tract) procedures [ ]n) Parenteral nutrition regimen that must be implemented on inpatient basis [ ]o) Other condition treatment or monitoring requiring inpatient admission [ ]II. Infected hepatic hydrothorax (eg, empyema) [ ]III. Hepatorenal syndrome (eg, elevated. creatinine with adequate volume status and negative evaluation for other cause)(8) [ ]IV. Spontaneous bacterial peritonitis [ ]V. Suspected infected ascites as indicated by ANY ONE of the following: [ ]a) Temp >100 degrees F (37.8 C ) [ ]b) High WBC count [ ]c) Abdominal pain or tenderness not relieved by paracentesis [X ]. New-onset or worsening hepatic encephalopathy(7) [ ]VII. Suspected fulminant hepatic failure (e.g., acute coagulopathy with hepatic encephalopathy or acute elevation of hepatic transaminases to more than 15 times baseline)(4) [ ]VIII. Acute hepatitis (e.g., ALT and AST at least 3 times baseline) with coagulopathy or severe jaundice as indicated by ANY ONE of the following(9)(10): [ ]a) Bilirubin >20 mg/dL (342 moles/L)(11) [ ]b) Acute elevation of PT to >50% above normal or INR >1.5 [ ] IX. Treatment of injury from hepatotoxin (e.g., acetaminophen) that requires inpatient monitoring [ ] X. Acute fatty liver of Extended stay beyond goal length of stay may be needed for(3)(7): [ ]a) Hepatorenal syndrome [ ]b) Severe or persistent hepatic encephalopathy [ ]c) Renal failure due to other causes associated with cirrhosis (e.g., hypovolemia) [ ]d) Severe or persistent coagulation abnormalities [ ]e) Refractory ascites, volume, or electrolyte abnormality [ ]f) Severe or persistent gastroesophageal bleeding [ ]g) Severe infectious or hepatotoxin-induced hepatitis (eg, acetaminophen) [ ]h) Hemodynamic instability that is severe or persistent The original [email or web address] content created by [email or web address] has been revised. The portions of the content which have been revised are identified through the use of italic text or in bold, and [facility] has neither reviewed nor approved the modified material. All other unmodified content is copyright [employer] [facility] [facility]. Please see references footnoted in the original [employer] [facility] [facility] [employer] edition 2016 Admit Criteria Met?: Yes
[2017-05-12] MEDS ORDERED: Levofloxacin 250mg/50mL 250 MG/50 ML BAG IV SCH (21:00)
== END 2017-05-10 20:30 | DRG 441 ==
LOC: ER 19:28 → ICU 05-10 01:23 → TELE 05-10 14:15
PROVIDERS: ADMIT Family Medicine; ATTEND Family Medicine
PROC: 5A1D00Z (ICD-10-PCS; principal; 2017-05-10)
DX: K72.90 Hepatic failure, unspecified without coma (principal); N18.6 End stage renal disease; J96.00 Acute respiratory failure, unspecified whether with hypoxia or hypercapnia; I13.2 Hypertensive heart and chronic kidney disease with heart failure and with stage 5 chronic kidney disease, or end stage renal disease; J18.1 Lobar pneumonia, unspecified organism; E11.22 Type 2 diabetes mellitus with diabetic chronic kidney disease; F03.90 Unspecified dementia, unspecified severity, without behavioral disturbance, psychotic disturbance, mood disturbance, and anxiety; D69.6 Thrombocytopenia, unspecified; N39.0 Urinary tract infection, site not specified; E78.5 Hyperlipidemia, unspecified; K21.9 Gastro-esophageal reflux disease without esophagitis; K27.9 Peptic ulcer, site unspecified, unspecified as acute or chronic, without hemorrhage or perforation; F32.9 Major depressive disorder, single episode, unspecified; K74.60 Unspecified cirrhosis of liver; I50.9 Heart failure, unspecified; I69.30 Unspecified sequelae of cerebral infarction; E55.9 Vitamin D deficiency, unspecified; K75.81 Nonalcoholic steatohepatitis (NASH); Z88.8 Allergy status to other drugs, medicaments and biological substances; Z99.3 Dependence on wheelchair; Z79.82 Long term (current) use of aspirin; Z99.2 Dependence on renal dialysis
CPT/HCPCS: 36415-UA; 70450-TC; 71010-TC; 71250-TC; 80053-TC; 80202-TC; 81001-TC; 82140-TC; 82550-TC; 82948-90; 83605; 84484-TC; 85025-TC; 85610-TC; 87070; 87086-90; 93005; 94640; 94760; 96375; J1580; J1956; J3370; J7030; X6614; Z7610

== ENCOUNTER 2017-06-03 17:38 | Emergency (ER) | payer OTHER, MEDICAID ==
--- NOTE | 2017-06-03 18:27 | ED Physician Chart ---
ED Chief Complaint/HPI - Patient Information Date Seen:: 06/03/17 Time Seen:: 18:20 Chief Complaint:: altered mental status History of Present Illness:: They did not finish dialysis patient sent here for altered mental status from the dialysis center. They were unable to finish dialysis. Patient is very confused. Allergies:: Allergies Allergy/AdvReac Type Severity Reaction Status Date / Time piperacillin [From Zosyn] Allergy Verified 06/03/17 18:06 tazobactam [From Zosyn] Allergy Verified 06/03/17 18:06 Vitals:: Vital Signs - 8 hr 06/03/17 17:59 Temp 97.5 F HR 82 RR 16 BP 122/65 O2 Sat % 96 <Srinivasa Newman - Last Filed: 06/03/17 18:40> - Patient Information Allergies:: Allergies Allergy/AdvReac Type Severity Reaction Status Date / Time piperacillin [From Zosyn] Allergy Verified 06/03/17 18:06 tazobactam [From Zosyn] Allergy Verified 06/03/17 18:06 Vitals:: Vital Signs - 8 hr 06/03/17 17:59 Temp 97.5 F HR 82 RR 16 BP 122/65 O2 Sat % 96 <Noble Amin - Last Filed: 06/03/17 22:29> ED Review of Systems - Review of Systems General/Constitutional: No fever, No chills Skin: No skin lesions Head: No headache Eyes: No loss of vision ENT: No earache Neck: No neck pain Cardio Vascular: No chest pain, No palpitations Pulmonary: No SOB GI: No nausea, No vomiting G/U: No dysuria Musculoskeletal: No bone or joint pain Endocrine: No polyuria Psychiatric: No prior psych history Hematopoietic: No bruising <Srinivasa Newman - Last Filed: 06/03/17 18:40> ED Past Medical History - Past Medical History Past Medical History: HTN, DM, Dyslipidemia, PUD/GERD, Other (major depression dialysis patient vitamin D deficiency; dementia; cirrhosis; status post cholecystitis thrombocytopenia; status post cholecystitis; history of transient ischemic attack) Family History: Other (unavailable) Social History: Care Facility Surgical History: other (dialysis ) Psychiatricy History: Depression <Srinivasa Newman - Last Filed: 06/03/17 18:40> Family Medical History - Family Member Mother History Unknown: Yes <Srinivasa Newman - Last Filed: 06/03/17 18:40> ED Physical Exam - Physical Examination Other Gen/Cons comments:: Chronically ill-appearing Head: Atraumatic Eyes: Lids, conjuctiva normal, PERRL Skin: Nl inspection, No rash, No skin lesions ENMT: External ears, nose nl Other ENMT comments:: No upper teeth Neck: No nuchal rigidity Respiratory: Nl effort/Exclusion, Clear to Auscultation Cardio Vascular: RRR GI: No tenderness/rebounding/guarding, No organomegaly : No CVA tenderness Extremities: No tenderness or effusion Neuro/Psych: No focal deficits <Srinivasa Newman - Last Filed: 06/03/17 18:40> ED Labs/Radiology/EKG Results - Lab Results Results: Abnormal Lab Results 06/03/17 06/03/17 06/03/17 18:59 18:59 18:59 WBC 5.5 D RBC 3.93 Hgb 12.1 Hct 36.3 L MCV 92.4 MCH 30.7 MCHC Differential 33.2 RDW 16.0 Plt Count 111 L D MPV 9.2 Neutrophils % 70.6 Lymphocytes % 15.3 L Monocytes % 12.0 H Eosinophils % 2.1 Basophils % 0.0 Sodium 138 Potassium 3.5 Chloride 101 Carbon Dioxide 25.7 Anion Gap 14.8 BUN 27 H Creatinine 4.7 H* Est GFR ( Amer) TNP Est GFR (Non-Af Amer) TNP BUN/Creatinine Ratio 5.7 Glucose 118 H Calcium 9.2 Total Bilirubin 2.8 H AST 28 ALT 17 Alkaline Phosphatase 128 H Ammonia 124 H Total Protein 6.7 Albumin 3.4 L Globulin 3.3 Albumin/Globulin Ratio 1.0 - EKG Interpretations EKG Time:: 17:07 Rate & Rhythm: RATE =68 NSR [place]: RIGHT AXIS <Noble Amin - Last Filed: 06/03/17 22:29> ED Assessment - Assessment General Assessment: SPOKE TO DR. Gaytan at [facility] who wants her transfered to [facility] after a dose of kaxalate 15 grams. <Noble Amin - Last Filed: 06/03/17 22:29> ED Septic Shock - <6hrs of presentation: Vital Signs: Vital Signs - 8 hr 06/03/17 17:59 Temp 97.5 F HR 82 RR 16 BP 122/65 O2 Sat % 96 <Srinivasa Newman - Last Filed: 06/03/17 18:40> - . Is Septic Shock (SBP<90, OR Lactate>4 mmol\L) present?: No - <6hrs of presentation: Vital Signs: Vital Signs - 8 hr 06/03/17 17:59 Temp 97.5 F HR 82 RR 16 BP 122/65 O2 Sat % 96 <Noble Amin - Last Filed: 06/03/17 22:29>
[2017-06-03 19:10] LABS: % EOSINOPHILS 2.1 % (0.0-5.0); % LYMPHOCYTES 15.3 % (20.0-50.0); % NEUTROPHILS 70.6 % (40.0-80.0); HEMATOCRIT 36.3 % (41.0-60); HEMOGLOBIN 12.1 gm/dL (12-16); MEAN CELL VOLUME 92.4 fl (81-100); MEAN CORPUSCULAR HEMOGLOBIN 30.7 pg (27.0-31.0); MEAN CORPUSCULAR HGB CONC 33.2 pg (28.0-36.0); MEAN PLATELET VOLUME 9.2 fl; NEUTROPHILE ABSOLUTE 3.9 Th/cmm (1.8-8.0); RED BLOOD COUNT 3.93 Mil/cmm (3.80-5.20)
[2017-06-03 19:17] LABS: PLATELET COUNT 111 Th/cmm (150-400); WHITE BLOOD COUNT 5.5 Th/cmm (4.8-10.8)
[2017-06-03 19:30] LABS: ALKALINE PHOSPHATASE 128 U/L (34-104); ANION GAP 14.8 (7.0-16.0); BILIRUBIN,TOTAL 2.8 mg/dL (0.3-1.0); BUN - UREA NITROGEN 27 mg/dL (7-25); BUN/CREATININE RATIO 5.7; CALCIUM SERUM 9.2 mg/dL (8.6-10.3); CARBON DIOXIDE 25.7 mEq/L (21.0-31.0); CHLORIDE 101 mEq/L (98-107); GLUCOSE 118 mg/dL (70-105); POTASSIUM SERUM 3.5 mEq/L (3.5-5.1); SGOT 28 U/L (13-39); SGPT/ALT 17 U/L (7-52); SODIUM SERUM 138 mEq/L (136-145)
[2017-06-03 19:54] LABS: CREATININE - SERUM 4.7 mg/dL (0.6-1.2)
[2017-06-04] MEDS ORDERED: Potassium Chloride Elixir 20 mEq /15 mL UDC ONE (00:18)
[2017-06-04] MEDS ORDERED: Potassium Chloride Elixir 20 mEq /15 mL UDC PO ONE (19:06)
== END 2017-06-03 23:38 | disposition short-term general hospital (02) ==
LOC: ER 17:38
DX: R41.82 Altered mental status, unspecified (principal); I10 Essential (primary) hypertension; E11.9 Type 2 diabetes mellitus without complications; E78.5 Hyperlipidemia, unspecified; K21.9 Gastro-esophageal reflux disease without esophagitis; Z87.11 Personal history of peptic ulcer disease
CPT/HCPCS: 36415-UA; 80053-TC; 82140-TC; 85025-TC; Z7502